=== PATIENT | male | born 1965 | race Hispanic/Latino ===

== ENCOUNTER 2025-04-08 12:48 | Inpatient (IN) | payer OTHER ==
[~2025-04-08 12:48] MED LIST: Iopamidol-370 76% 500 ML MDV (1 ML CHARGE) ONE
[2025-04-08] MEDS ORDERED: Acetaminophen 325 MG TAB ONE (13:45)
[2025-04-08] MEDS ORDERED: Ondansetron PF 4 MG/2 ML Vial ONE ×2 (13:45→18:12)
[2025-04-08 14:38] LABS: #Basophils 0.05 10x3/uL (0.0-0.2); #Eosinophils Less than 0.03 10x3/uL (0.0-0.7); #Monocytes 1.70 10x3/uL (0.11-0.59); #Neutrophils 12.96 10x3/uL (1.40-6.50); %Basophils 0.3 % (0.0-1.0); %Eosinophils 0.1 % (0.0-10.0); %Lymphocytes 9.7 % (21.0-51.0); %Monocytes 10.4 % (0.0-10.0); %Neutrophils 79.0 % (42.0-75.0); Hematocrit 43.9 % (42.0-52.0); Hemoglobin 14.7 g/dL (14.0-18.0); Mean Corpuscular Hemoglobin 30.8 pg (27.0-31.0); Mean Corpuscular Volume 92.0 fL (78.0-98.0); Platelet Count 263 10x3/uL (130-400); Red Blood Cell (RBC) Count 4.77 mill/uL (4.70-6.10); White Blood Cell (WBC) Count 16.39 10x3/uL (4.8-10.8)
[2025-04-08 14:51] LABS: ALT (SGPT) 88 U/L (Less than 45); AST (SGOT) 54 U/L (11-34); Albumin 3.5 g/dL (3.1-4.5); Alkaline Phosphatase 135 U/L (40-110); Anion Gap 13 mmol/L (10-20); BUN (Urea Nitrogen) 22 mg/dL (8.4-25.7); Bilirubin, Total 1.8 mg/dL (0.3-1.2); Calc. Creatinine Clearance 0 mL/min (70-130); Calcium 9.6 mg/dL (7.8-10.44); Carbon Dioxide 24 mmol/L (22-29); Chloride 102 mmol/L (98-107); Globulin 4.5 g/dL (2.4-3.5); Glucose 118 mg/dL (70-105); Lipase 11 U/L (8-78); Magnesium 2.0 mg/dL (1.6-2.6); Potassium 4.1 mmol/L (3.5-5.1); Sodium 135 mmol/L (136-145)
[2025-04-08 15:22] LABS: Bacteria/HPF None Seen HPF (None Seen); CAUTI Indications for Culture Pelvic or flank pain; Glucose, Urine (Dipstick) Normal (Negative); Leukocyte 250 Leu/uL (Negative); Protein, Urine (Dipstick) 30 mg/dL (Neg-Trace); RBC/HPF 0-3 HPF (0-3); Specific Gravity, Urine 1.028 (1.002-1.036)
[2025-04-08 15:35] LABS: Urine Culture Reflex No No
[2025-04-08] MEDS ORDERED: Ondansetron PF 4 MG/2 ML Vial IVP PRN (16:55)
[2025-04-08] MEDS ORDERED: Acetaminophen 325 MG TAB PO PRN (16:55)
[2025-04-08] MEDS ORDERED: hydrALAZINE 20 MG/ML VIAL SLOW IVP PRN (16:55)
[2025-04-08] MEDS ORDERED: fentaNYL PF 100 MCG/2 ML SYRINGE ONE ×3 (17:35→20:03)
[2025-04-08] MEDS ORDERED: Rocuronium Bromide 10 MG/ML (10ML VIAL) ONE ×2 (17:35→17:38)
[2025-04-08] MEDS ORDERED: PROPOFOL 20 ML ONE (17:35)
[2025-04-08] MEDS ORDERED: Lidocaine 1% PF 5 ML VIAL ONE (17:35)
[2025-04-08 17:40] LABS: Hep A IgM AB NONREACTIVE (NonReactive); Hep A IgM S/CO 0.20 S/CO (0-0.79); Hep B Core IgM Index 0.08 S/CO (0-0.79); Hep B Surf Ag NONREACTIVE S/CO (NonReactive); Hep C IgG Ab NONREACTIVE S/CO (NonReactive); Hep C Index 0.13 S/CO (0-0.79)
[2025-04-08] MEDS ORDERED: Ketorolac Tromethamine 30 MG (1 mL) VIAL ONE ×2 (18:12→19:33)
[2025-04-08] MEDS ORDERED: Bupivacaine 0.25% HCL 30 ML VIAL ONE (18:38)
[2025-04-08] MEDS ORDERED: SUGAMMADEX SODIUM 200 MG/2 ML VIAL ONE (19:01)
[2025-04-08] MEDS: Ketorolac Tromethamine 30 MG (1 mL) VIAL IVP SCH (19:36)
[2025-04-08] MEDS ORDERED: HYDROmorphone 0.5 MG/0.5 ML SYRINGE ONE (19:59)
[2025-04-08 20:37] VITALS: BMI 30.2
[2025-04-08] MEDS: Famotidine/PF 20 mg/2ml Vial SLOW IVP SCH (20:51)
[2025-04-08] MEDS: Famotidine 20 MG TAB PO SCH (20:52)
[2025-04-08] MEDS: HYDROcodone/Acetaminophen 5/325 mg Tablet PO PRN (21:07)
[2025-04-09] MEDS ORDERED: diphenhydrAMINE 50 MG/ML VIAL IVP PRN (00:39)
[2025-04-09 04:36] LABS: #Basophils Less than 0.03 10x3/uL (0.0-0.2); #Eosinophils Less than 0.03 10x3/uL (0.0-0.7); #Monocytes 0.77 10x3/uL (0.11-0.59); #Neutrophils 13.49 10x3/uL (1.40-6.50); %Basophils 0.1 % (0.0-1.0); %Eosinophils 0.0 % (0.0-10.0); %Lymphocytes 4.1 % (21.0-51.0); %Monocytes 5.1 % (0.0-10.0); %Neutrophils 90.2 % (42.0-75.0); Mean Corpuscular Hemoglobin 31.0 pg (27.0-31.0); Platelet Count 266 10x3/uL (130-400)
[2025-04-09 04:44] LABS: ALT (SGPT) 73 U/L (Less than 45); AST (SGOT) 44 U/L (11-34); Albumin 2.9 g/dL (3.1-4.5); Alkaline Phosphatase 120 U/L (40-110); Anion Gap 15 mmol/L (10-20); BUN (Urea Nitrogen) 19 mg/dL (8.4-25.7); Bilirubin, Total 1.5 mg/dL (0.3-1.2); Calc. Creatinine Clearance 95 mL/min (70-130); Calcium 8.7 mg/dL (7.8-10.44); Carbon Dioxide 21 mmol/L (22-29); Chloride 102 mmol/L (98-107); Globulin 4.1 g/dL (2.4-3.5); Glucose 152 mg/dL (70-105); Potassium 3.9 mmol/L (3.5-5.1); Sodium 134 mmol/L (136-145)
[2025-04-09] MEDS: Acetaminophen/Codeine 30-300mg Tablet PO PRN (05:42)
[2025-04-09] MEDS: Calcium Carbonate 500 MG ChewTAB PO SCH (08:16)
[2025-04-09 09:27] LABS: Hematocrit 38.6 % (42.0-52.0); Hemoglobin 13.0 g/dL (14.0-18.0); Mean Corpuscular Volume 91.9 fL (78.0-98.0); Red Blood Cell (RBC) Count 4.20 mill/uL (4.70-6.10); White Blood Cell (WBC) Count 14.66 10x3/uL (4.8-10.8)
[2025-04-09 10:29] LABS: Burr Cells SLIGHT = 2-5 cells HPF (0-1); Dohle Bodies SLIGHT; Platelet Adequacy Comment Platelets Normal; Polychromasia SLIGHT = 2-3 cells HPF (0-2)
[2025-04-10 05:29] LABS: #Basophils 0.03 10x3/uL (0.0-0.2); #Eosinophils Less than 0.03 10x3/uL (0.0-0.7); #Monocytes 1.06 10x3/uL (0.11-0.59); #Neutrophils 10.56 10x3/uL (1.40-6.50); %Basophils 0.2 % (0.0-1.0); %Eosinophils 0.1 % (0.0-10.0); %Lymphocytes 10.7 % (21.0-51.0); %Monocytes 8.1 % (0.0-10.0); %Neutrophils 80.4 % (42.0-75.0); Hematocrit 35.7 % (42.0-52.0); Hemoglobin 11.8 g/dL (14.0-18.0); Mean Corpuscular Hemoglobin 30.4 pg (27.0-31.0); Mean Corpuscular Volume 92.0 fL (78.0-98.0); Platelet Count 281 10x3/uL (130-400); Red Blood Cell (RBC) Count 3.88 mill/uL (4.70-6.10); White Blood Cell (WBC) Count 13.13 10x3/uL (4.8-10.8)
[2025-04-10 06:08] LABS: ALT (SGPT) 49 U/L (Less than 45); AST (SGOT) 24 U/L (11-34); Albumin 2.6 g/dL (3.1-4.5); Alkaline Phosphatase 93 U/L (40-110); Anion Gap 11 mmol/L (10-20); BUN (Urea Nitrogen) 20 mg/dL (8.4-25.7); Bilirubin, Total 0.5 mg/dL (0.3-1.2); Calc. Creatinine Clearance 113 mL/min (70-130); Calcium 8.5 mg/dL (7.8-10.44); Carbon Dioxide 24 mmol/L (22-29); Chloride 104 mmol/L (98-107); Globulin 3.7 g/dL (2.4-3.5); Glucose 136 mg/dL (70-105); Potassium 3.6 mmol/L (3.5-5.1); Sodium 135 mmol/L (136-145)
[2025-04-10 14:13] VITALS: BP 122/78; TEMP 97.9
== END 2025-04-10 15:04 | DRG 398 ==
LOC: ERS 12:48 → SDC/OP 18:16 → SURG A 20:30 → EEVIPCON 20:30 → OBSVTOIN 04-09 16:24
PROVIDERS: ADMIT Surgery; ATTEND Surgery
PROC: 0DTJ4ZZ Resection of Appendix, Percutaneous Endoscopic Approach (ICD-10-PCS; principal; 2025-04-08)
PROC: 3E03329 Introduction of Other Anti-infective into Peripheral Vein, Percutaneous Approach (ICD-10-PCS; 2025-04-08)
DX: K35.80 Unspecified acute appendicitis (principal); K56.7 Ileus, unspecified; R65.10 Systemic inflammatory response syndrome (SIRS) of non-infectious origin without acute organ dysfunction; I10 Essential (primary) hypertension; F41.9 Anxiety disorder, unspecified; F32.A Depression, unspecified; Z88.8 Allergy status to other drugs, medicaments and biological substances; Z98.890 Other specified postprocedural states; Z88.6 Allergy status to analgesic agent; Z79.899 Other long term (current) drug therapy
CPT/HCPCS: 36415; 74177; 80053; 80074; 81001; 83605; 83690; 83735; 85025; 87040; 88304; 93005; 94760; 96361; 96365; 96372; 96375; G0378; J0169; J0665; J1100; J1171; J1308; J1885; J2405; J2543; J2704; J7120; Q9967